=== PATIENT | female | born 1965 | race Caucasian/White ===

== ENCOUNTER 2019-04-22 11:30 | Emergency (ER) | payer OTHER, SELFPAY ==
[2019-04-22 11:31] VITALS: BP 130/72; PULSE 74; RESP 16; TEMP 36.8; O2SAT 99; BMI 24.3
--- NOTE | 2019-04-22 11:53 | VDLE_ITS ---
Reason For Study: Pain RIGHT LEFT CFV is compressible, spontaneous, phasic, CFV is compressible, spontaneous, phasic, competent and demonstrates normal competent, and demonstrates normal augmentation. augmentation. Procedure FV is compressible, spontaneous, phasic, Exam performed portable in ED. competent and demonstrates normal A preliminary report was called and/or faxed augmentation. to Ana. POP V is compressible, spontaneous, phasic, competent and demonstrates normal augmentation. T/P Trunk is compressible. PTV is compressible. LT PerV is compressible. Acute deep vein thrombosis is noted in the left soleus vein. Acute superficial vein thrombosis is noted in the left GSV from mid calf to ankle. Thrombus filled varicose veins noted in the left proximal medial calf. Interpretation Summary Acute deep vein thrombosis is noted in the left soleus vein. The remeinder of the left lower extremity deep venous system is patent and compressible. Valvular competence appears intact within the proximal deep venous system on the left . Acute superficial thrombophlebitis is noted in the left great saphenous vein from the left mid-calf to the ankle, and involving superficial varicosities in the left proximal, medial calf. Ordering Physician: Unruly Perez Performed By: Katia Mai RVT
--- NOTE | 2019-04-22 13:05 | ED.DCSUM_ITS ---
- ER Visit Summary Date of Service: 04/22/19 Chief Complaint: Left leg pain History of Present Illness: The patient is a 53 F resents with left leg pain that has been getting worse over the past few days. Patient describes the pain is sharp and cramping. Patient states the pain is worse with ambulation. Patient states the pain is over the medial aspect of the left lower leg. Patient denies any paresthesias or weakness. Patient denies any trauma or injury. Patient is concerned over possible DVT. Physical Examination: Vital signs are stable. Patient is afebrile. Patient is in no acute distress. Musculoskeletal exam reveals some mild tenderness over the left calf along the medial aspect. There is no bony crepitance or step-off. There is some mild erythema on the medial aspect of the left proximal and distal lower leg. There is no fluctuance or abscess formation. There is full range of motion of the left lower extremity. Pedal pulses are equal bilaterally. Sensation was intact light touch bilaterally in the lower extremities. Strength is 5/5 bilateral lower extremities. There is minimal edema. Test Results: Venous duplex of the left lower extremity shows a DVT in the left soleus vein. There is also some superficial thrombophlebitis noted in the left greater saphenous vein as well as some varicose veins in the left proximal medial calf. Emergency Department Course and Treatment: Case was discussed with the patient's primary care physician Dr. Truong. He recommended starting the patient on anticoagulants. Patient was given a prescription for Xarelto. Patient was instructed to follow-up with Dr. Truong in 5 to 7 days. Patient and family understood and was agreeable with the plan. All questions were answered. Disposition: Discharge home Impression: 1. DVT left soleus vein 2. Superficial thrombophlebitis This note was generated with [employer] dictation software. It may contain incorrect words, spelling, and punctuation that were not noted in review of the chart prior to signing ED Disposition - Plan for ED Patient: Disposition: Home or Assisted Living Diagnosis: Acute deep vein thrombosis (DVT) of distal end of left lower extremity, Superficial thrombophlebitis Instructions: Dvt Prescriptions: Rivaroxaban [Xarelto] 15 mg PO BID #42 tab Prescription Printed Referrals: Aidan Truong MD [Primary Care Provider] - 5-7 Days Additional Instructions: Call Dr. Elderbrock's office today to schedule appointment for follow-up care in 5 to 7 days.
[2019-04-22 14:24] VITALS: BP 115/78; PULSE 78; RESP 16; O2SAT 99
== END 2019-04-22 14:25 | disposition home or self-care (01) ==
PROVIDERS: Emergency Provider Emergency Medicine; Family Provider Family Medicine; PCP Family Medicine
DX: I82.462 Acute embolism and thrombosis of left calf muscular vein (principal); I83.92 Asymptomatic varicose veins of left lower extremity
CPT/HCPCS: 93971; 99283